=== PATIENT | female | born 1990 | race Caucasian/White ===

== ENCOUNTER 2019-04-02 10:53 | Emergency (ER) | payer MEDICAID, OTHER ==
[~2019-04-02] VITALS: Ht 170.2 cm; Wt 56.8 kg
[~2019-04-02 10:53] MED LIST: HYDR1TAB PO
[2019-04-02 10:55] VITALS: BP 121/70
[2019-04-02] MEDS ORDERED: PRED20TA PO (12:44)
[2019-04-02] MEDS ORDERED: AZIT250T83 PO (12:44)
== END 2019-04-02 13:07 | disposition home or self-care (01) ==
LOC: ER 10:54
DX: J20.9 Acute bronchitis, unspecified (principal); F17.200 Nicotine dependence, unspecified, uncomplicated; F15.90 Other stimulant use, unspecified, uncomplicated; F11.90 Opioid use, unspecified, uncomplicated; F10.99 Alcohol use, unspecified with unspecified alcohol-induced disorder; Z56.0 Unemployment, unspecified; Z79.899 Other long term (current) drug therapy; Y90.9 Presence of alcohol in blood, level not specified
CPT/HCPCS: 99283

== ENCOUNTER 2020-04-26 13:20 | Emergency (ER) | payer MEDICAID ==
[~2020-04-26] VITALS: Ht 170.2 cm; Wt 72.7 kg
[2020-04-26] MEDS ORDERED: acetaminophen 325mg tablet PO ONE (13:50)
--- NOTE | 2020-04-26 14:37 | NUR ---
PATIENT TAKEN IN FROM [facility] TO ER ROOM #11 FOR FURTHER ASSESSMENT/EXAMINATION BY PROVIDER. COVID SWAB OBTAINED AND SENT TO THE LAB.
[2020-04-26 15:00] LABS: URINE HCG NEGATIVE (NEG)
[2020-04-26 15:03] LABS: BASOPHILS % (AUTO) 0.2 % (0-1); EOSINOPHILS % (AUTO) 0.1 % (0-6); HEMATOCRIT 43.7 % (35.0-45.0); HEMOGLOBIN 14.6 g/dl (12.0-16.0); LYMPHOCYTES # (AUTO) 0.8 X10'3 (1.1-4.8); LYMPHOCYTES % (AUTO) 5.1 % (21-51); MEAN CORPUSCULAR HEMOGLOBIN 32.3 PG (27.0-31.0); MEAN CORPUSCULAR HGB CONC 33.5 g/dL (33.0-36.5); MEAN CORPUSCULAR VOLUME 96.5 FL (78-98); MEAN PLATELET VOLUME 10.4 FL (7.4-10.4); MONOCYTES # (AUTO) 1.1 X10'3 (0-0.9); MONOCYTES % (AUTO) 6.8 % (2-12); NEUTROPHILS % (AUTO) 87.8 % (42-75); PLATELET COUNT 204 X10'3 (140-440); RED BLOOD COUNT 4.53 X10'6 (4.20-5.60); RED CELL DISTRIBUTION WIDTH 12.8 % (11.5-14.5); WHITE BLOOD COUNT 15.9 X10'3 (4.5-11.0)
[2020-04-26 15:06] LABS: URINE AMPHETAMINE SCREEN NEGATIVE (Neg); URINE BARBITUATE SCREEN NEGATIVE (Neg); URINE BENZODIAZEPINES SCREEN NEGATIVE (Neg); URINE CANNABINOID SCREEN NEGATIVE (Neg); URINE COCAINE SCREEN NEGATIVE (Neg); URINE METHADONE SCREEN NEGATIVE (Neg); URINE OPIATE SCREEN NEGATIVE (Neg); URINE PHENCYCLIDINE SCREEN NEGATIVE (Neg)
[2020-04-26 15:12] LABS: CLARITY,URINE CLEAR (Clear); COLOR,URINE YELLOW (Yellow); GLUCOSE, URINE NEGATIVE (Neg); KETONES,URINE 40 mg/dl (Neg); LEUKOCYTE ESTERASE ,URINE MODERATE (Neg); NITRITES, URINE NEGATIVE (Neg); OCCULT BLOOD,URINE MODERATE (Neg); PROTEIN,URINE 30 mg/dl (Neg)
[2020-04-26 15:16] LABS: UA COLLECTION TYPE CLN CATCH MIDSTREAM
[2020-04-26 15:16] LABS: ALANINE AMINOTRANSFERASE 17 U/L (12-78); ALBUMIN 3.9 G/DL (3.4-5.0); ALBUMIN/GLOBULIN RATIO 0.9 (1.1-1.5); ALKALINE PHOSPHATASE 83 IU/L (46-116); ANION GAP 9 (8-16); ASPARTATE AMINO TRANSFERASE 14 U/L (10-37); BILIRUBIN,TOTAL 0.7 MG/DL (0.1-1.0); BLOOD UREA NITROGEN 7 MG/DL (7-18); BUN/CREATININE RATIO 8.9 (6.6-38.0); CALCIUM 8.8 MG/DL (8.5-10.1); CHLORIDE 101 MMOL/L (99-107); CREATININE 0.79 MG/DL (0.40-0.90); GLUCOSE 107 MG/DL (70-104); POTASSIUM 3.6 MMOL/L (3.5-5.1); SODIUM 136 MMOL/L (135-145); TOTAL CARBON DIOXIDE 25.6 MMOL/L (24-32); TOTAL PROTEIN 8.2 G/DL (6.4-8.2); eGFR 87 ML/MIN
[2020-04-26 15:20] LABS: WBC,URINE TNTC /HPF (0-4)
[2020-04-26 15:21] LABS: BACTERIA,URINE 1+ /HPF (Neg); MUCUS STRANDS NONE SEEN /LPF (Neg); SQUAMOUS EPITHELIAL CELL,UR MODERATE /LPF (FEW)
[2020-04-26] MEDS ORDERED: CefTRIAXone 1000mg IM Kit (w/lidocaine diluent) IM ONE (16:45)
[2020-04-26] MEDS ORDERED: azithromycin 250mg tablet PO ONE (16:45)
[2020-04-26] MEDS ORDERED: ONDA4TAB6 PO (17:02)
[2020-04-26] MEDS ORDERED: CEPH-572 PO (17:02)
[2020-04-26 17:59] VITALS: BP 109/77
== END 2020-04-26 18:01 | disposition home or self-care (01) ==
LOC: ER 13:20
DX: N39.0 Urinary tract infection, site not specified (principal); Z20.828 Contact with and (suspected) exposure to other viral communicable diseases; F12.90 Cannabis use, unspecified, uncomplicated; Z72.89 Other problems related to lifestyle; Z56.0 Unemployment, unspecified; Z79.899 Other long term (current) drug therapy
CPT/HCPCS: 36415; 71045; 80053; 80305; 81001; 81025; 83605; 84145; 85025; 87491; 87591; 87635; 96372; 99284; J0696

== ENCOUNTER 2020-04-28 18:45 | Emergency (ER) | payer MEDICAID ==
[~2020-04-28] VITALS: Ht 170.2 cm; Wt 72.7 kg
[~2020-04-28 18:45] MED LIST changes: +CEPH-572 PO; +ONDA4TAB6 PO
[2020-04-28] MEDS ORDERED: dexamethasone sod phosphate 10mg/ml inj IV STA (19:16)
[2020-04-28] MEDS ORDERED: acetaminophen 325mg tablet PO ONE ×2 (19:20→19:25)
[2020-04-28] MEDS ORDERED: normal saline 1000ML IV soln IVB ONE (19:20)
[2020-04-28 20:33] LABS: BASOPHILS # (AUTO) 0.1 X10'3 (0-0.2); BASOPHILS % (AUTO) 0.6 % (0-1); EOSINOPHILS % (AUTO) 0.1 % (0-6); HEMATOCRIT 40.3 % (35.0-45.0); HEMOGLOBIN 13.9 g/dl (12.0-16.0); LYMPHOCYTES # (AUTO) 1.1 X10'3 (1.1-4.8); LYMPHOCYTES % (AUTO) 9.9 % (21-51); MEAN CORPUSCULAR HEMOGLOBIN 32.9 PG (27.0-31.0); MEAN CORPUSCULAR HGB CONC 34.4 g/dL (33.0-36.5); MEAN CORPUSCULAR VOLUME 95.6 FL (78-98); MONOCYTES % (AUTO) 9.5 % (2-12); NEUTROPHILS # (AUTO) 8.7 X10'3 (1.8-7.7); NEUTROPHILS % (AUTO) 79.9 % (42-75); PLATELET COUNT 172 X10'3 (140-440); RED BLOOD COUNT 4.21 X10'6 (4.20-5.60); RED CELL DISTRIBUTION WIDTH 12.7 % (11.5-14.5); WHITE BLOOD COUNT 10.9 X10'3 (4.5-11.0)
[2020-04-28 20:46] LABS: ANION GAP 12 (8-16); BILIRUBIN,TOTAL 0.6 MG/DL (0.1-1.0); BLOOD UREA NITROGEN 7 MG/DL (7-18); BUN/CREATININE RATIO 8.2 (6.6-38.0); CHLORIDE 99 MMOL/L (99-107); CREATININE 0.85 MG/DL (0.40-0.90); GLUCOSE 107 MG/DL (70-104); POTASSIUM 3.5 MMOL/L (3.5-5.1); SODIUM 135 MMOL/L (135-145); TOTAL CARBON DIOXIDE 24.4 MMOL/L (24-32); TOTAL PROTEIN 7.8 G/DL (6.4-8.2); eGFR 80 ML/MIN
[2020-04-28 20:47] LABS: ALANINE AMINOTRANSFERASE 23 U/L (12-78); ALBUMIN/GLOBULIN RATIO 0.6 (1.1-1.5); ALKALINE PHOSPHATASE 78 IU/L (46-116); ASPARTATE AMINO TRANSFERASE 20 U/L (10-37)
[2020-04-28] MEDS ORDERED: PRED20TA PO (21:53)
[2020-04-28] MEDS ORDERED: ONDA4TAB6 PO (21:53)
[2020-04-28 22:08] VITALS: BP 106/68
== END 2020-04-28 22:09 | disposition home or self-care (01) ==
LOC: ER 18:45
DX: J02.9 Acute pharyngitis, unspecified (principal); R06.02 Shortness of breath; R05 Cough; R50.9 Fever, unspecified; Z20.828 Contact with and (suspected) exposure to other viral communicable diseases; F15.90 Other stimulant use, unspecified, uncomplicated; F11.90 Opioid use, unspecified, uncomplicated; F19.90 Other psychoactive substance use, unspecified, uncomplicated; Z72.89 Other problems related to lifestyle; Z56.0 Unemployment, unspecified; Z79.2 Long term (current) use of antibiotics; Z79.899 Other long term (current) drug therapy
CPT/HCPCS: 36415; 71045; 80053; 85025; 87502; 87503; 96361; 96374; 99285; J1100; J7030

== ENCOUNTER 2020-09-28 15:06 | Emergency (ER) | payer MEDICAID ==
[~2020-09-28] VITALS: Ht 170.2 cm; Wt 86.2 kg
[2020-09-28 15:27] VITALS: BP 105/77
[2020-09-28 16:05] LABS: URINE HCG NEGATIVE (NEG)
[2020-09-28 16:08] LABS: CLARITY,URINE CLOUDY (Clear); COLOR,URINE YELLOW (Yellow); GLUCOSE, URINE NEGATIVE (Neg); KETONES,URINE NEGATIVE (Neg); LEUKOCYTE ESTERASE ,URINE MODERATE (Neg); NITRITES, URINE NEGATIVE (Neg); OCCULT BLOOD,URINE LARGE (Neg); PROTEIN,URINE 30 mg/dl (Neg); UA COLLECTION TYPE CLN CATCH MIDSTREAM
[2020-09-28 16:19] LABS: BACTERIA,URINE 1+ /HPF (Neg); RBC,URINE 50-100 /HPF (0-2); SQUAMOUS EPITHELIAL CELL,UR MODERATE /LPF (FEW); WBC,URINE TNTC /HPF (0-4)
[2020-09-28] MEDS ORDERED: SULF1TAB49 PO (16:32)
[2020-09-28] MEDS ORDERED: PHEN-824 PO (16:32)
== END 2020-09-28 16:51 | disposition home or self-care (01) ==
LOC: ER 15:06
DX: N39.0 Urinary tract infection, site not specified (principal); R30.9 Painful micturition, unspecified; M54.5 Low back pain; R50.9 Fever, unspecified; F15.90 Other stimulant use, unspecified, uncomplicated; F11.90 Opioid use, unspecified, uncomplicated; F19.90 Other psychoactive substance use, unspecified, uncomplicated; Z72.89 Other problems related to lifestyle; Z56.0 Unemployment, unspecified; Z79.2 Long term (current) use of antibiotics; Z79.899 Other long term (current) drug therapy
CPT/HCPCS: 81001; 81025; 87088; 99283

== ENCOUNTER 2021-01-01 13:46 | Emergency (ER) | payer MEDICAID ==
[~2021-01-01] VITALS: Ht 170.2 cm; Wt 89.0 kg
[~2021-01-01 13:46] MED LIST changes: +PHEN-824 PO
[2021-01-01 14:02] VITALS: BP 116/80
[2021-01-01 14:33] LABS: BASOPHILS % (AUTO) 0.5 % (0-1); EOSINOPHILS % (AUTO) 0.2 % (0-6); HEMATOCRIT 43.4 % (35.0-45.0); HEMOGLOBIN 14.7 g/dl (12.0-16.0); LYMPHOCYTES % (AUTO) 9.4 % (21-51); MEAN CORPUSCULAR HEMOGLOBIN 32.6 PG (27.0-31.0); MEAN CORPUSCULAR HGB CONC 33.9 g/dL (33.0-36.5); MEAN PLATELET VOLUME 10.7 FL (7.4-10.4); MONOCYTES # (AUTO) 0.9 X10'3 (0-0.9); MONOCYTES % (AUTO) 8.4 % (2-12); NEUTROPHILS # (AUTO) 8.4 X10'3 (1.8-7.7); NEUTROPHILS % (AUTO) 81.5 % (42-75); PLATELET COUNT 203 X10'3 (140-440); RED BLOOD COUNT 4.52 X10'6 (4.20-5.60); RED CELL DISTRIBUTION WIDTH 12.7 % (11.5-14.5); WHITE BLOOD COUNT 10.3 X10'3 (4.5-11.0)
[2021-01-01 14:46] LABS: ALANINE AMINOTRANSFERASE 16 U/L (12-78); ALBUMIN 3.7 G/DL (3.4-5.0); ALBUMIN/GLOBULIN RATIO 0.9 (1.1-1.5); ALKALINE PHOSPHATASE 80 IU/L (46-116); ANION GAP 9 (8-16); ASPARTATE AMINO TRANSFERASE 10 U/L (10-37); BILIRUBIN,TOTAL 0.5 MG/DL (0.1-1.0); BLOOD UREA NITROGEN 8 MG/DL (7-18); BUN/CREATININE RATIO 9.1 (6.6-38.0); CALCIUM 8.5 MG/DL (8.5-10.1); CHLORIDE 104 MMOL/L (99-107); CREATININE 0.88 MG/DL (0.40-0.90); GLUCOSE 96 MG/DL (70-104); LIPASE < 50 U/L (73-393); POTASSIUM 3.7 MMOL/L (3.5-5.1); SODIUM 139 MMOL/L (135-145); TOTAL CARBON DIOXIDE 25.6 MMOL/L (24-32); TOTAL PROTEIN 7.8 G/DL (6.4-8.2); eGFR 77 ML/MIN
== END 2021-01-01 14:37 | disposition left against medical advice (07) ==
LOC: ER 13:46
DX: R10.9 Unspecified abdominal pain (principal); Z20.822 Contact with and (suspected) exposure to COVID-19; E86.0 Dehydration; R53.83 Other fatigue; Z53.21 Procedure and treatment not carried out due to patient leaving prior to being seen by health care provider
CPT/HCPCS: 80053; 83690; 85025; 87635; C9803

== ENCOUNTER 2022-02-23 00:54 | Inpatient (IN) | payer MEDICAID ==
[2022-02-23] VITALS (31 sets, daily range): BP systolic 102–129; BP diastolic 61–86
[~2022-02-23] VITALS: Ht 170.2 cm; Wt 180.0 kg
[2022-02-23 02:29] LABS: BASOPHILS # (AUTO) 0.1 X10'3 (0-0.2); BASOPHILS % (AUTO) 0.8 % (0-1); EOSINOPHILS # (AUTO) 0.3 X10'3 (0-0.9); EOSINOPHILS % (AUTO) 3.3 % (0-6); HEMATOCRIT 39.8 % (35.0-45.0); HEMOGLOBIN 13.5 g/dl (12.0-16.0); LYMPHOCYTES # (AUTO) 2.6 X10'3 (1.1-4.8); LYMPHOCYTES % (AUTO) 28.2 % (21-51); MEAN CORPUSCULAR HEMOGLOBIN 31.9 PG (27.0-31.0); MEAN CORPUSCULAR VOLUME 93.8 FL (78-98); MEAN PLATELET VOLUME 10.6 FL (7.4-10.4); MONOCYTES # (AUTO) 0.6 X10'3 (0-0.9); MONOCYTES % (AUTO) 6.9 % (2-12); NEUTROPHILS # (AUTO) 5.6 X10'3 (1.8-7.7); NEUTROPHILS % (AUTO) 60.8 % (42-75); PLATELET COUNT 182 X10'3 (140-440); RED BLOOD COUNT 4.24 X10'6 (4.20-5.60); RED CELL DISTRIBUTION WIDTH 13.8 % (11.5-14.5); WHITE BLOOD COUNT 9.3 X10'3 (4.5-11.0)
[2022-02-23 02:41] LABS: ALANINE AMINOTRANSFERASE 55 U/L (12-78); ALBUMIN 3.6 G/DL (3.4-5.0); ALKALINE PHOSPHATASE 75 IU/L (46-116); ANION GAP 8 (8-16); ASPARTATE AMINO TRANSFERASE 43 U/L (10-37); BILIRUBIN,TOTAL 0.2 MG/DL (0.1-1.0); BLOOD UREA NITROGEN 15 MG/DL (7-18); BUN/CREATININE RATIO 19.7 (6.6-38.0); CALCIUM 9.1 MG/DL (8.5-10.1); CHLORIDE 106 MMOL/L (99-107); CREATININE 0.76 MG/DL (0.40-0.90); GLUCOSE 103 MG/DL (70-104); LIPASE 70 U/L (73-393); POTASSIUM 3.5 MMOL/L (3.5-5.1); SODIUM 143 MMOL/L (135-145); TOTAL CARBON DIOXIDE 29.2 MMOL/L (24-32); TOTAL PROTEIN 7.3 G/DL (6.4-8.2); eGFR 90 ML/MIN
[2022-02-23 02:49] LABS: PLATELET ESTIMATE NORMAL
[2022-02-23 02:50] LABS: LARGE PLATELETS FEW
[2022-02-23] MEDS ORDERED: ondansetron/PF 4mg/2ml inj IV ONE ×2 (04:15→06:30)
[2022-02-23] MEDS ORDERED: normal saline 1000ML IV soln IVB ONE (04:15)
[2022-02-23] MEDS ORDERED: morphine 4 MG/ML inj SYRINge IV ONE ×2 (04:15→06:30)
--- NOTE | 2022-02-23 04:32 | NUR ---
ULTRA SOUND PAGED AT [id number]
[2022-02-23] MEDS ORDERED: piperacillin/tazo 3.375gm/50ml 50 ML IV ONE (06:30)
[2022-02-23] MEDS ORDERED: magnesium 4gm in 100ml NS 100 ML IV PRN (08:20)
[2022-02-23] MEDS ORDERED: potassium Cl 40MEQ/1/2NS 520ml 520 ML IV PRN (08:20)
[2022-02-23] MEDS ORDERED: HYDROcodone/acetaminophen 10/325mg tab PO PRN (08:20)
[2022-02-23] MEDS ORDERED: HYDROcodone/acetaminophen 5mg/325mg tablet PO PRN ×2 (08:20→17:50)
[2022-02-23] MEDS ORDERED: bisacodyl 10mg suppository rectal RC PRN (08:20)
[2022-02-23] MEDS ORDERED: magnesium Cl slow-release 64mg tablet PO PRN (08:20)
[2022-02-23] MEDS ORDERED: ondansetron/PF 4mg/2ml inj IV PRN ×3 (08:20→17:50)
[2022-02-23] MEDS ORDERED: potassium Cl 20 mEq SR tablet PO PRN ×2 (08:20)
[2022-02-23] MEDS ORDERED: mag hydrox/Alum hydrox/simeth 30ml oral suspension PO PRN (08:20)
[2022-02-23] MEDS ORDERED: diphenhydrAMINE 25mg capsule PO PRN (08:20)
[2022-02-23] MEDS ORDERED: magnesium hydroxide 30ml (MOM) UD suspension PO PRN (08:20)
[2022-02-23] MEDS ORDERED: acetaminophen 650mg rectal suppository RC PRN (08:20)
[2022-02-23] MEDS ORDERED: acetaminophen 325mg tablet PO PRN ×2 (08:20)
[2022-02-23] MEDS ORDERED: morphine 2 MG/ML inj. syringe IV PRN ×3 (08:20→15:25)
[2022-02-23] MEDS: normal saline 1000ml 1,000 ML IV SCH ×2 (09:03→22:37)
[2022-02-23] MEDS ORDERED: NO HOME MEDS (13:10)
[2022-02-23 13:30] LABS: URINE HCG NEGATIVE (NEG)
[2022-02-23 13:45] LABS: CLARITY,URINE CLEAR (Clear); COLOR,URINE YELLOW (Yellow); GLUCOSE, URINE NEGATIVE (Neg); KETONES,URINE NEGATIVE (Neg); LEUKOCYTE ESTERASE ,URINE NEGATIVE (Neg); NITRITES, URINE NEGATIVE (Neg); OCCULT BLOOD,URINE NEGATIVE (Neg); PH,URINE 6.5 (4.8-8.0); PROTEIN,URINE NEGATIVE (Neg); UROBILINOGEN,URINE 0.2 E.U/dL (0.2-1.0)
[2022-02-23 13:50] LABS: UA COLLECTION TYPE CLN CATCH MIDSTREAM
[2022-02-23] MEDS ORDERED: iohexol 300mg/ml 100ml inj. ONE (13:56)
[2022-02-23] MEDS ORDERED: morphine 4 MG/ML inj SYRINge IV PRN (15:25)
[2022-02-23] MEDS ORDERED: ketorolac trometh. 30mg/ml inj. IV ONE (15:25)
[2022-02-23] MEDS ORDERED: proCHLORperazine 10 MG/2 ml inj IV PRN (15:25)
[2022-02-23] MEDS ORDERED: hydrALAZINE 20mg/ml inj. IV PRN (15:25)
[2022-02-23] MEDS ORDERED: labetalol 20mg/4ml (5mg/ml) syringe IV PRN (15:25)
[2022-02-23] MEDS ORDERED: meperidine/PF 25mg/ml syringe IV PRN ×2 (15:25)
[2022-02-23] MEDS ORDERED: ringers solution, lacted 1,000 ML IV SCH (15:25)
[2022-02-23] MEDS ORDERED: BUPIVAcaine/PF 2.5 mg/ml (0.25%) 30ml vial ONE (15:41)
[2022-02-23] MEDS ORDERED: midazolam 1 mg/ML 2ml injection ONE (15:44)
[2022-02-23] MEDS ORDERED: fentaNYL /PF 50mcg/ml 5ml ampule ONE (15:46)
[2022-02-23] MEDS: piperacillin/tazo 3.375gm/50ml 50 ML IV SCH (16:00)
[2022-02-23] MEDS ORDERED: acetaminophen 1,000mg/100ml IV 100 ML IV ONE (16:39)
[2022-02-23] MEDS ORDERED: ceFOXitin 1000 MG inj ONE ×2 (16:46)
[2022-02-23] MEDS ORDERED: rocuronium 10mg/ml inj IV ONE (16:46)
[2022-02-23] MEDS ORDERED: propofol inj 20 ML IV ONE (16:46)
[2022-02-23] MEDS ORDERED: dexamethasone sod phosphate 4mg/ml inj. ONE (16:46)
[2022-02-23] MEDS ORDERED: LIDOcaine 2% (20mg/ml) 5ml vial ONE (16:46)
[2022-02-23] MEDS ORDERED: ondansetron/PF 4mg/2ml inj ONE (16:46)
[2022-02-23] MEDS ORDERED: neostigmine methylsulfate 1 MG/ML 10ml vial ONE (17:44)
[2022-02-23] MEDS ORDERED: glycopyrrolate 0.2mg/ml inj ONE (17:44)
[2022-02-23] MEDS ORDERED: naloxone 0.4 mg/ml inj IV PRN (17:50)
--- NOTE | 2022-02-23 17:50 | NUR ---
Received from OR via HOSPITAL BED, accompanied by Anesthesiologist and report given by JACQUES Anesthesiologist. PATIENT WAKING UP, DENIES PAIN, V/S WNL, SCD ON , PIV 20G LAC, BANDAIDS C/D/I TO ABDOMEN. Addendum: 02/23/22 at 1826 by Sotero Esqueda RN Amended: Links added.
[2022-02-23] MEDS: meperidine/PF 25mg/ml syringe IV PRN ×2 (18:03→18:20)
[2022-02-23] MEDS: K and/or MAG REPLACEMENT MC SCH (20:00)
[2022-02-23] MEDS: diatr meglu/diatrizoate 30ml oral sol.-(3 dose) bottle PO SCH (21:00)
--- NOTE | 2022-02-23 21:40 | NUR ---
PATIENT HAS MET ALL CRITERIA FOR TRANSFER TO THE SURGICAL FLOOR. VSS. DRESSINGS INTACT. BED LOW, CALL LIGHT PRESENT AND 2 RAILS UP. RN PRESENT TO ACCEPT CARE OF PATIENT AND REPORT HAS BEEN CALLED. ALL QUESTIONS ANSWERED TO ACCEPTING RN. Addendum: 02/23/22 at 2147 by Sotero Esqueda RN Amended: Links added.
--- NOTE | 2022-02-23 22:30 | NUR ---
Patient arrived. Patient is groggy. NS 100ml/hr started.
[2022-02-23] MEDS: docusate sod 100mg capsule PO SCH (22:31)
[2022-02-24] VITALS: BP 107/66
[2022-02-24] MEDS: piperacillin/tazo 3.375gm/50ml 50 ML IV SCH ×2 (00:17→09:19)
[2022-02-24 01:59] VITALS: BP 115/70
[2022-02-24 04:00] VITALS: BP 104/60
--- NOTE | 2022-02-24 04:00 | NUR ---
Patient walked around med surge floor loop.
[2022-02-24 06:00] VITALS: BP 116/72
--- NOTE | 2022-02-24 06:03 | NUR ---
Problems reprioritized. Patient report given, questions answered & plan of care reviewed with Meghann BENSON.
[2022-02-24 06:08] LABS: BASOPHILS % (AUTO) 0.3 % (0-1); EOSINOPHILS % (AUTO) 0.1 % (0-6); HEMATOCRIT 35.7 % (35.0-45.0); HEMOGLOBIN 12.4 g/dl (12.0-16.0); LYMPHOCYTES # (AUTO) 0.7 X10'3 (1.1-4.8); LYMPHOCYTES % (AUTO) 10.2 % (21-51); MEAN CORPUSCULAR HEMOGLOBIN 31.9 PG (27.0-31.0); MEAN CORPUSCULAR HGB CONC 34.6 g/dL (33.0-36.5); MEAN CORPUSCULAR VOLUME 92.2 FL (78-98); MEAN PLATELET VOLUME 10.7 FL (7.4-10.4); MONOCYTES # (AUTO) 0.4 X10'3 (0-0.9); MONOCYTES % (AUTO) 5.3 % (2-12); NEUTROPHILS # (AUTO) 5.7 X10'3 (1.8-7.7); NEUTROPHILS % (AUTO) 84.1 % (42-75); PLATELET COUNT 184 X10'3 (140-440); RED BLOOD COUNT 3.87 X10'6 (4.20-5.60); RED CELL DISTRIBUTION WIDTH 13.6 % (11.5-14.5); WHITE BLOOD COUNT 6.7 X10'3 (4.5-11.0)
--- NOTE | 2022-02-24 06:30 | NUR ---
Patient in room [id number]. I have received report from KELLEY Yip and had the opportunity to ask questions and assume patient care.
[2022-02-24 06:36] LABS: ALANINE AMINOTRANSFERASE 316 U/L (12-78); ALBUMIN/GLOBULIN RATIO 0.9 (1.1-1.5); ALKALINE PHOSPHATASE 92 IU/L (46-116); ANION GAP 7 (8-16); ASPARTATE AMINO TRANSFERASE 202 U/L (10-37); BLOOD UREA NITROGEN 7 MG/DL (7-18); CALCIUM 8.7 MG/DL (8.5-10.1); CHLORIDE 103 MMOL/L (99-107); CREATININE 0.78 MG/DL (0.40-0.90); GLUCOSE 135 MG/DL (70-104); MAGNESIUM 1.9 MG/DL (1.5-2.4); PHOSPHORUS 4.8 MG/DL (2.3-4.5); POTASSIUM 4.1 MMOL/L (3.5-5.1); SODIUM 139 MMOL/L (135-145); TOTAL CARBON DIOXIDE 28.6 MMOL/L (24-32); TOTAL PROTEIN 6.2 G/DL (6.4-8.2); eGFR 87 ML/MIN
--- NOTE | 2022-02-24 06:37 | NUR ---
Problems reprioritized. Patient report given, questions answered & plan of care reviewed with Sussy RN.
[2022-02-24] MEDS: diatr meglu/diatrizoate 30ml oral sol.-(3 dose) bottle PO SCH (07:00)
[2022-02-24] MEDS: normal saline 1000ml 1,000 ML IV SCH ×2 (07:45→14:20)
[2022-02-24] MEDS: K and/or MAG REPLACEMENT MC SCH (07:59)
[2022-02-24] MEDS ORDERED: heparin, porcine 5000 units/ml vial SQ SCH (08:00)
[2022-02-24] MEDS: docusate sod 100mg capsule PO SCH (09:18)
[2022-02-24] MEDS: ketorolac trometh. 30mg/ml inj. IV PRN ×2 (09:24→15:43)
[2022-02-24 10:00] VITALS: BP 117/67
--- NOTE | 2022-02-24 15:15 | NUR ---
Noted pt current reported wt likely error supposed to be 180 pounds instead of 180kg; pharmacy and RN notified in case pt receiving wt-based medications. True BMI likely ~28.2 pending official scaled wt this admit. Addendum: 02/24/22 at [address] Amended: Links added.
--- NOTE | 2022-02-24 17:00 | NUR ---
DC inst provided to pt. IV DC'd, tip intact. All belongings sent w/pt. Pt ambulated to vehicle.
== END 2022-02-24 17:01 | disposition home or self-care (01) | DRG 263 ==
LOC: ER 00:55 → ED HOLD 08:22 → SUR 3N 21:39
PROVIDERS: ADMIT Family Medicine; ATTEND Family Medicine
PROC: BW211ZZ Computerized Tomography (CT Scan) of Abdomen and Pelvis using Low Osmolar Contrast (ICD-10-PCS; 2022-02-23)
PROC: 0FT44ZZ Resection of Gallbladder, Percutaneous Endoscopic Approach (ICD-10-PCS; principal; 2022-02-23 16:18)
DX: K80.00 Calculus of gallbladder with acute cholecystitis without obstruction (principal); F11.90 Opioid use, unspecified, uncomplicated; F15.90 Other stimulant use, unspecified, uncomplicated; F17.200 Nicotine dependence, unspecified, uncomplicated; Z28.310 Unvaccinated for COVID-19; Z56.0 Unemployment, unspecified; Z71.6 Tobacco abuse counseling
CPT/HCPCS: 36415; 74177; 76700; 80053; 81003; 81025; 83690; 83735; 84100; 85008; 85025; 86885; 86900; 86901; 87081; 96365; 96375; 99285; A4215; A4618; A7000; G0378; J0131; J0694; J1100; J1644; J1885; J2175; J2250; J2270; J2405; J2543; J2704; J2710; J3010; J3490; J7030; Q9967

== ENCOUNTER 2022-05-20 11:50 | Emergency (ER) | payer MEDICAID ==
[~2022-05-20] VITALS: Ht 170.2 cm; Wt 95.0 kg
[2022-05-20 11:52] VITALS: BP 105/53
[2022-05-20] MEDS ORDERED: acetaminophen 325mg tablet PO ONE (12:45)
== END 2022-05-20 13:46 | disposition home or self-care (01) ==
LOC: ER 11:50
DX: J02.9 Acute pharyngitis, unspecified (principal); F17.200 Nicotine dependence, unspecified, uncomplicated; F15.20 Other stimulant dependence, uncomplicated; Z90.49 Acquired absence of other specified parts of digestive tract; Z56.0 Unemployment, unspecified
CPT/HCPCS: 87081; 87880; 99283

== ENCOUNTER 2022-05-23 22:35 | Emergency (ER) | payer MEDICAID ==
[~2022-05-23] VITALS: Ht 170.2 cm; Wt 95.2 kg
[2022-05-23 22:44] VITALS: BP 124/81
[2022-05-23 23:38] LABS: CLARITY,URINE CLEAR (Clear); COLOR,URINE YELLOW (Yellow); GLUCOSE, URINE NEGATIVE (Neg); KETONES,URINE NEGATIVE (Neg); LEUKOCYTE ESTERASE ,URINE NEGATIVE (Neg); NITRITES, URINE NEGATIVE (Neg); OCCULT BLOOD,URINE MODERATE (Neg); PROTEIN,URINE NEGATIVE (Neg); URINE HCG NEGATIVE (NEG); UROBILINOGEN,URINE 0.2 E.U/dL (0.2-1.0)
[2022-05-23 23:41] LABS: UA COLLECTION TYPE CLN CATCH MIDSTREAM
[2022-05-23 23:44] LABS: BASOPHILS % (AUTO) 0.6 % (0-1); EOSINOPHILS # (AUTO) 0.2 X10'3 (0-0.9); EOSINOPHILS % (AUTO) 2.2 % (0-6); HEMATOCRIT 37.2 % (35.0-45.0); HEMOGLOBIN 12.7 g/dl (12.0-16.0); LYMPHOCYTES # (AUTO) 2.1 X10'3 (1.1-4.8); LYMPHOCYTES % (AUTO) 27.8 % (21-51); MEAN CORPUSCULAR HEMOGLOBIN 32.2 PG (27.0-31.0); MEAN CORPUSCULAR HGB CONC 34.1 g/dL (33.0-36.5); MEAN CORPUSCULAR VOLUME 94.4 FL (78-98); MEAN PLATELET VOLUME 10.1 FL (7.4-10.4); MONOCYTES % (AUTO) 13.6 % (2-12); NEUTROPHILS # (AUTO) 4.1 X10'3 (1.8-7.7); NEUTROPHILS % (AUTO) 55.8 % (42-75); PLATELET COUNT 205 X10'3 (140-440); RED BLOOD COUNT 3.95 X10'6 (4.20-5.60); RED CELL DISTRIBUTION WIDTH 12.7 % (11.5-14.5); WHITE BLOOD COUNT 7.4 X10'3 (4.5-11.0)
[2022-05-23 23:48] LABS: BACTERIA,URINE FEW /HPF (Neg); SQUAMOUS EPITHELIAL CELL,UR FEW /LPF (FEW); WBC,URINE 0-4 /HPF (0-4)
[2022-05-23 23:59] LABS: ALANINE AMINOTRANSFERASE 30 U/L (12-78); ALBUMIN 3.3 G/DL (3.4-5.0); ALBUMIN/GLOBULIN RATIO 0.8 (1.1-1.5); ALKALINE PHOSPHATASE 69 IU/L (46-116); ANION GAP 10 (8-16); ASPARTATE AMINO TRANSFERASE 21 U/L (10-37); BILIRUBIN,TOTAL 0.4 MG/DL (0.1-1.0); BLOOD UREA NITROGEN 6 MG/DL (7-18); BUN/CREATININE RATIO 7.9 (6.6-38.0); CALCIUM 8.8 MG/DL (8.5-10.1); CHLORIDE 99 MMOL/L (99-107); CREATININE 0.76 MG/DL (0.40-0.90); GLUCOSE 93 MG/DL (70-104); POTASSIUM 3.1 MMOL/L (3.5-5.1); SODIUM 137 MMOL/L (135-145); TOTAL CARBON DIOXIDE 28.4 MMOL/L (24-32); TOTAL PROTEIN 7.7 G/DL (6.4-8.2); eGFR 90 ML/MIN
[2022-05-24] MEDS ORDERED: ibuprofen tablet 400 MG TABLET PO ONE (00:35)
[2022-05-24] MEDS ORDERED: acetaminophen 325mg tablet PO ONE (00:35)
== END 2022-05-24 01:01 | disposition home or self-care (01) ==
LOC: ER 22:35
DX: B34.9 Viral infection, unspecified (principal); Z20.822 Contact with and (suspected) exposure to COVID-19; R51.9 Headache, unspecified; M54.50 Low back pain, unspecified; F15.90 Other stimulant use, unspecified, uncomplicated; F11.90 Opioid use, unspecified, uncomplicated; F19.90 Other psychoactive substance use, unspecified, uncomplicated; Z90.49 Acquired absence of other specified parts of digestive tract; Z72.89 Other problems related to lifestyle; Z56.0 Unemployment, unspecified
CPT/HCPCS: 36415; 80053; 81001; 81025; 84145; 85025; 87502; 87503; 87635; 99283; C9803

== ENCOUNTER 2024-04-07 00:51 | Emergency (ER) | payer MEDICAID ==
[~2024-04-07] VITALS: Ht 170.2 cm; Wt 69.0 kg
[2024-04-07] MEDS ORDERED: DIPH25CA83 PO (01:41)
[2024-04-07] MEDS ORDERED: CIME800T PO (01:41)
[2024-04-07] MEDS: dexamethasone 4mg tablet PO ONE (01:47)
[2024-04-07] MEDS: diphenhydrAMINE 25mg capsule PO ONE (01:47)
[2024-04-07] MEDS: famotidine 20mg tablet PO ONE (01:47)
[2024-04-07 02:03] VITALS: BP 95/54; PULSE 101; RESP 17; O2SAT 98
[2024-04-07 02:36] LABS: SYPHILIS SCREENING TEST POC NEGATIVE (Negative)
[2024-04-07 03:04] VITALS: TEMP 99.5
== END 2024-04-07 03:06 | disposition home or self-care (01) ==
LOC: ER 00:52
DX: L27.0 Generalized skin eruption due to drugs and medicaments taken internally (principal); T36.1X5A Adverse effect of cephalosporins and other beta-lactam antibiotics, initial encounter; F17.200 Nicotine dependence, unspecified, uncomplicated; F15.90 Other stimulant use, unspecified, uncomplicated; F11.90 Opioid use, unspecified, uncomplicated; F19.90 Other psychoactive substance use, unspecified, uncomplicated; Z56.0 Unemployment, unspecified; Z88.1 Allergy status to other antibiotic agents; Z90.49 Acquired absence of other specified parts of digestive tract; Y92.89 Other specified places as the place of occurrence of the external cause
CPT/HCPCS: 36415; 99284; Q0163

== ENCOUNTER 2024-07-20 15:39 | Emergency (ER) | payer MEDICAID ==
[~2024-07-20 15:39] MED LIST changes: -CEPH-572 PO; +CIME800T PO; +DIPH25CA83 PO; -HYDR1TAB PO; -ONDA4TAB6 PO; -PHEN-824 PO
== END 2024-07-20 16:44 | disposition left against medical advice (07) ==
LOC: ER 15:39
DX: A64 Unspecified sexually transmitted disease (principal); Z88.8 Allergy status to other drugs, medicaments and biological substances; Z53.21 Procedure and treatment not carried out due to patient leaving prior to being seen by health care provider

== ENCOUNTER 2024-07-21 17:41 | Emergency (ER) | payer MEDICAID ==
[~2024-07-21] VITALS: Ht 170.2 cm; Wt 66.2 kg
[2024-07-21 17:48] VITALS: BP 138/77; PULSE 96; RESP 18; TEMP 97.8; O2SAT 99
[2024-07-22] MEDS ORDERED: METR-159 PO (14:12)
[2024-07-22] MEDS ORDERED: FLUC200T8 PO (14:12)
== END 2024-07-21 22:12 | disposition left against medical advice (07) ==
LOC: ER 17:41
DX: A64 Unspecified sexually transmitted disease (principal); Z88.8 Allergy status to other drugs, medicaments and biological substances; Z53.21 Procedure and treatment not carried out due to patient leaving prior to being seen by health care provider

== ENCOUNTER 2024-07-22 12:09 | Emergency (ER) | payer MEDICAID ==
[~2024-07-22] VITALS: Ht 170.2 cm; Wt 66.1 kg
[2024-07-22 12:13] VITALS: BP 122/54; PULSE 87; RESP 15; TEMP 98.7; O2SAT 100
[2024-07-22] MEDS: azithromycin 250mg tablet PO ONE (13:14)
[2024-07-22] MEDS ORDERED: METR-159 PO (14:12)
[2024-07-22] MEDS ORDERED: FLUC200T8 PO (14:12)
[2024-07-22 16:24] LABS: SYPHILIS SCREENING TEST POC NEGATIVE (Negative)
== END 2024-07-22 14:23 | disposition home or self-care (01) ==
LOC: ER 12:09
DX: N76.0 Acute vaginitis (principal); Z11.3 Encounter for screening for infections with a predominantly sexual mode of transmission; Z90.49 Acquired absence of other specified parts of digestive tract; Z88.8 Allergy status to other drugs, medicaments and biological substances; Z88.1 Allergy status to other antibiotic agents
CPT/HCPCS: 36415; 87491; 99283

== ENCOUNTER 2024-07-23 11:28 | Emergency (ER) | payer MEDICAID ==
[~2024-07-23] VITALS: Ht 170.2 cm; Wt 59.1 kg
[~2024-07-23 11:28] MED LIST changes: +FLUC200T8 PO; +METR-159 PO
[2024-07-23 11:34] VITALS: BP 116/69; PULSE 93; RESP 16; TEMP 97; O2SAT 99
== END 2024-07-23 12:24 | disposition home or self-care (01) ==
LOC: ER 11:28
DX: Z02.9 Encounter for administrative examinations, unspecified (principal); F15.90 Other stimulant use, unspecified, uncomplicated; F11.90 Opioid use, unspecified, uncomplicated; F19.90 Other psychoactive substance use, unspecified, uncomplicated; Z88.1 Allergy status to other antibiotic agents; Z90.49 Acquired absence of other specified parts of digestive tract; Z79.899 Other long term (current) drug therapy; Z56.0 Unemployment, unspecified
CPT/HCPCS: 99281